=== PATIENT | male | born 1975 | race Caucasian/White ===

== ENCOUNTER 2025-10-26 12:46 | Emergency (ER) | payer OTHER ==
[~2025-10-26] VITALS: Ht 172.7 cm; Wt 68.0 kg
[2025-10-26 12:48] VITALS: BP 129/87
[2025-10-26] MEDS ORDERED: SULF1TAB48 PO (13:25)
[2025-10-26] MEDS ORDERED: CEPH500C2 PO (13:25)
[2025-10-26 13:34] VITALS: BP 129/87; TEMP 209.5; O2SAT 95
[2025-10-26] MEDS ORDERED: MUPI22OI2 TP (13:39)
== END 2025-10-26 13:34 | disposition home or self-care (01) ==
LOC: ER 12:46
DX: L03.115 Cellulitis of right lower limb (principal); F17.290 Nicotine dependence, other tobacco product, uncomplicated
CPT/HCPCS: A4606

== ENCOUNTER 2025-10-27 12:30 | Emergency (ER) | payer SELFPAY ==
[~2025-10-27 12:30] MED LIST: CEPH500C2 PO; MUPI22OI2 TP; SULF1TAB48 PO
== END 2025-10-27 12:37 | disposition left against medical advice (07) ==
LOC: ER 12:30
DX: Z53.21 Procedure and treatment not carried out due to patient leaving prior to being seen by health care provider (principal)
CPT/HCPCS: A4606